=== PATIENT | female | born 2000 | race Caucasian/White ===

== ENCOUNTER 2020-09-04 05:03 | Outpatient (CLI) | payer OTHER ==
[2020-09-05] MEDS ORDERED: COLACE 100MG C100 MG PO (04:50)
[2020-09-05] MEDS ORDERED: IBUPROFEN600 MG PO (04:50)
== END 2020-09-04 07:42 | disposition home or self-care (01) ==
LOC: GENOP 05:03
DX: O62.9 Abnormality of forces of labor, unspecified (principal); O26.899 Other specified pregnancy related conditions, unspecified trimester; M54.9 Dorsalgia, unspecified; R10.30 Lower abdominal pain, unspecified
CPT/HCPCS: G0463

== ENCOUNTER 2020-09-05 04:14 | Inpatient (IN) | payer OTHER ==
[2020-09-05] MEDS ORDERED: COLACE 100MG C100 MG PO (04:50)
[2020-09-05] MEDS ORDERED: IBUPROFEN600 MG PO (04:50)
[2020-09-05 05:02] LABS: HEMOGLOBIN 11.7 gm/dl (12.3-15.3); RED BLOOD COUNT 3.71 M/UL (4.00-5.10)
[2020-09-06 06:27] LABS: HEMOGLOBIN 9.7 gm/dl (12.3-15.3)
[2020-09-06] MEDS ORDERED: IBUPROFEN600 MG PO (13:26)
[2020-09-06] MEDS ORDERED: DOCUSATE SODIU100 MG PO (13:26)
[2020-09-06] MEDS ORDERED: OXYCODONE HCL5 MG PO (13:26)
== END 2020-09-06 17:39 | disposition home or self-care (01) | DRG 807 ==
LOC: GENOP 04:14 → OB 04:25
PROVIDERS: ADMIT Obstetrics & Gynecology
PROC: 10E0XZZ Delivery of Products of Conception, External Approach (ICD-10-PCS; principal; 2020-09-05)
PROC: 0HQ9XZZ Repair Perineum Skin, External Approach (ICD-10-PCS; 2020-09-05)
PROC: 3E0234Z Introduction of Serum, Toxoid and Vaccine into Muscle, Percutaneous Approach (ICD-10-PCS; 2020-09-06)
DX: O62.3 Precipitate labor (principal); Z37.0 Single live birth; Z3A.40 40 weeks gestation of pregnancy; O70.9 Perineal laceration during delivery, unspecified; O99.334 Smoking (tobacco) complicating childbirth; F17.210 Nicotine dependence, cigarettes, uncomplicated; O75.89 Other specified complications of labor and delivery; Z14.1 Cystic fibrosis carrier; O99.02 Anemia complicating childbirth; D64.9 Anemia, unspecified; Z20.822 Contact with and (suspected) exposure to COVID-19; Z23 Encounter for immunization
CPT/HCPCS: 36415; 82800; 85014; 85018; 85025; 86900; 86901; 90715; 96372; G0463; J2550; U0003